=== PATIENT | female | born 1945 | race Caucasian/White ===

== ENCOUNTER 2017-10-22 03:10 | Inpatient (IN) | payer OTHER, MEDICARE ==
[~2017-10-22] VITALS: Ht 157.5 cm; Wt 77.1 kg
[~2017-10-22 03:10] MED LIST: ASPIRIN EC81 M1 PO; CALTRATE 600 +1 EACH PO; FERROUS SULFAT325 M3 PO; GLUCOSAMINE CH1 EAC3; LOSARTAN POTASS25 M1 PO; MULTIPLE VITAM1 EACH; TOPROL XL50 M1
--- NOTE | 2017-10-22 09:32 | Operative Report ---
Operative/Inv Procedure Report Surgery Date: 10/22/17 Name of Procedure: Right total knee arthroplasty Pre-Operative Diagnosis: Right knee primary osteoarthritis, valgus deformity Post-Operative Diagnosis: Same Estimated Blood Loss: less than 50ml Surgeon/Easter Bunny: Pelon PAEZ,Vasiliy Rosas Anesthesia: block Implants: Striker triathlon total knee system-size 4 femur, size 3 tibia, 11 mm cruciate retaining polyethylene, 27 patella Drains: None Specimens: Femoral, tibial, patellar bone, meniscal tissues Microbiology: Urine Tourniquet: 48 minutes Complications: None Condition: Stable Operative Indication: Patient is a 72-year-old woman with a long history of gradually worsening right knee symptoms and progressive valgus deformity. She had mechanical symptoms and increasing pain. Due to these ongoing symptoms and minimal long-term improvement with conservative measures, she wished to proceed with total knee arthroplasty. Risks, benefits and expectations of the surgical procedure were discussed which included but were not limited to persistent knee pain, need for subsequent surgery, infection, DVT, injury to blood vessel or nerve, anesthesia risks. Operative/Procedure Note Note: Patient was brought to the operating room and transferred to the operating table. Once under appropriate anesthesia the right lower extremity was prepped and draped in standard fashion. Preoperative IV antibiotic's were given prophylactically. Leg was elevated exsanguinated and tourniquet was inflated. A anterior incision was made for anticipated medial parapatellar approach to the knee. Incision was taken down sharply to the underlying retinaculum. A medial retinacular approach was used with a minimal extension into the quadriceps tendon. The patient had eburnated bone along the lateral compartment and patellofemoral compartment. Moderate degenerative changes of the medial compartment. Osteophytes were excised. Remnants of the degenerative medial and lateral meniscal tissues were excised. Minimal dissection around the medial tibia was used since patient had a valgus deformity. The drill was used to to enter the intramedullary canal the femur for the intramedullary guide to the distal femoral cut. 5 cut was chosen. The cut was made. I then sized the femur to a size 4. Size 4 cuts were made while protecting the soft tissues. Retractors were used throughout the case to protect soft tissues. I was satisfied the preparation of the femur for now. The external tibial alignment guide was used. The cutting block was pinned in position for a neutral cut from medial to lateral and reproducing patient's posterior slow-paced on intraoperative findings and preoperative templating. Again soft tissues were protected posteriorly medially and laterally. The PCL was recessed slightly. Cut was made I then measured the tibia to a size 3. Trial reduction was size 3 tibia 11 mm insert and the 4 femur was used. I was satisfied with the correction of the valgus deformity. I was satisfied with the soft tissue balancing. I then used 2 towel clamps to stabilize the patella. The patella was measured and the appropriate thickness was removed and then restored with a size 27 patella and 3 lug holes were drilled and the knee was taken through range of motion. Excellent patellar femoral tracking despite patient's preoperative valgus deformity. No need for lateral release. I then removed all trial components. Preparation of the tibia was finished with the appropriate tibial punch at the appropriate rotation which was marked prior to removing the trial components. The 2 lug holes of the femur also drilled prior to removal of the trial components. I then removed all instrumentation the knee and copious irrigation followed. I used the anterior chamfer bone to plug the distal femoral intramedullary hole to minimize postoperative hemarthrosis and swelling. Once the cement was ready it was applied to the dry clean bony surfaces of the tibia. The size 3 tibia was impacted in place with the correct rotation based on my torres from the trial. Excess cement was removed with curettes. Cement was applied to the dry clean bony surfaces of the distal femur. The size 4 femur was impacted in place and excess cement was removed with curettes. The trial polyethylene was placed and the knee was taken out to full extension. Cement was applied to the dry clean bony surfaces of the patella. The size 27 patella was impacted in place and excess cement was removed with a knife. During the cement hardening process I did appear articular pericapsular injection of a cocktail which included ropivacaine with epinephrine saline and Toradol for postoperative pain and inflammation management. Once cement was hardening took the knee through range of motion I removed all small pieces of excess cement. I was satisfied with the stability with the 11 mm insert. Full extension. No mid flexion instability. Full flexion to gravity. No need for lateral patellar release based on the patellofemoral tracking. Copious irrigation the tibial tray followed. I made sure there was no remaining soft tissue, bone fragments or cement fragments within the tibial tray and then I impacted the definitive size 11 mm cruciate retaining polyethylene into place. The locking mechanism was confirmed. After copious irrigation the tourniquet was deflated at 48 minutes. Hemostasis was obtained. No need for a drain. I then closed the retinaculum with interrupted #1 Vicryl suture. Subcutaneous tissues closed in 2 layers with 2-0 Vicryl and skin was closed with a 3-0 Vicryl suture with the knee in flexion. Appropriate just his were applied and patient was awakened and taken the recovery room in good condition. No intraoperative complications. Blood loss was 50 mL or less Discharge Disposition: PACU
--- NOTE | 2017-10-22 10:51 | Patient Discharge Instructions ---
Discharge Instructions General Discharge Information You were seen/treated for: Right knee pain related to osteoarthritis You had these procedures: Right total knee replacement Watch for these problems: Increasing pain despite the use of pain medication Increasing redness, warmth or swelling Drainage of any type from incision Inability to bear weight on operative leg Persistent nausea and vomiting Fever greater than 101.5 degrees Other wound care: Please keep wound clean and dry. No ointments or lotions of any type on or near incision. Your dressing will be changed by your nurse on the second day after your surgery. Daily dry dressing changes are recommended each day thereafter. You may shower 48hr after surgery. Do not soak your wound- no tub baths or swimming. Diet Continue normal diet: Yes Activity Activity Limited to: Weight bear as tolerated Additional ACTIVITY Info: Use assistive devices as needed Acute Coronary Syndrome Inclusion Criteria At DC or during hospital stay patient has or had the following: ACS DIAGNOSIS No Discharge Core Measures Meds if any: Prescribed or Continued at Discharge Meds if any: NOT Prescribed or Continued at Discharge Congestive Heart Failure Inclusion Criteria At DC or during hospital stay patient has or had the following: CHF DIAGNOSIS No Discharge Core Measures Meds if any: Prescribed or Continued at Discharge Meds if any: NOT Prescribed or Continued at Discharge Cerebrovascular accident Inclusion Criteria At DC or during hospital stay patient has or had the following: CVA/TIA Diagnosis No Discharge Core Measures Meds if any: Prescribed or Continued at Discharge Meds if any: NOT Prescribed or Continued at Discharge Venous thromboembolism Inclusion Criteria VTE Diagnosis No VTE Type NONE VTE Confirmed by (Test) NONE Discharge Core Measures - Per Current guidelines, there needs to be overlap - treatment for the first 5 days of Warfarin therapy. - If discharged on Warfarin prior to 5 days of - overlap therapy, the patient will need to be - assessed for post discharge needs including - *Post discharge parental anticoagulation - *Warfarin and/or parental anticoagulation education - *Follow up date to check INR post discharge At least 5 days overlap therapy as Inpatient No Meds if any: Prescribed or Continued at Discharge Note: Overlap Therapy is Warfarin and Anticoagulant Meds if any: NOT Prescribed or Continued at Discharge
--- NOTE | 2017-10-22 10:54 | Surg Short-stay <48hrs Dis Sum ---
Visit Information Visit Dates Admission Date: 10/22/17 Discharge Date: 10/24/17 Surgical Short Stay DC Summary Admission Diagnosis: Right knee pain related to osteoarthritis Final Diagnosis: Same, status post right total knee replacement Procedure(s): Right total knee replacement Summary/Significant Findings: Patient was admitted to the hospital for an elective total joint replacement. Procedure was tolerated well and patient was transferred to a general surgical floor. Diet was advanced and tolerated. Physical therapy performed evaluation and treatment. At time of hospital discharge, vital signs were stable, neurovascular status was intact, and pain was controlled with the use of oral pain medications. Condition at Discharge: Stable Discharge Disposition: home health services Discharge instructions provided to patient/family: Yes Post discharge follow-up plan: Call to be seen in the office in 2 weeks Copies to: Ralph Bird MD
[2017-10-22 11:56] VITALS: BP 118/62
[2017-10-22 13:15] VITALS: BP 108/52
--- NOTE | 2017-10-22 14:01 | PN- Orthopedic ---
Subjective Subjective: POC some nausea, no vomiting. just ate some [place] ice and now feeling better. no oob, "too sick" to work with pt. no cp/sob. no pain. le no longer numb Objective Vital Signs and I&Os Vital Signs Date Time Temp Pulse Resp B/P B/P Pulse O2 O2 Flow FiO2 Mean Ox Delivery Rate 10/22 1156 94 Nasal 2.0L Cannula 10/22 1156 98.9 63 18 118/62 94 Nasal 2.0L Cannula Intake & Output 10/22 1600 10/22 0800 10/22 0000 10/21 1600 10/21 0800 10/21 0000 Intake Total Output Total Balance Patient 170 lb Weight Weight Reported by Patient Measurement Method Physical Exam: gen- nad card- s1s2 rrr pulm- ctab abd- soft nt ext- rle dressed in karla, cdi. gross sensation intact, gross dorsi/plantarflexion intact. palp pedal pulses bl. calves soft nt bl, alps on. Assessment/Plan Assessment/Plan A- POD0 sp R TKR, PMHx htn, with postop nausea, otherwise stable. P- prn pain meds prn antiemetics i&os reg diet as tolerated anticoag: eliquis bid jenna wyatt in am am labs home meds oob, pt, wbat will dw attending Problem List: 1. Primary osteoarthritis of right knee Core Measures Venous Thromboembolism VTE Risk Factors Surgery No Mechanical VTE Prophylaxis d/t N/A MechProphylax Ordered No VTE Pharm Prophylaxis d/t NA PharmProphylax ordered
[2017-10-22 17:02] VITALS: BP 106/60
[2017-10-22 19:45] VITALS: BP 102/60
[2017-10-22 23:28] VITALS: BP 100/48
[2017-10-23 03:32] VITALS: BP 98/56
[2017-10-23 07:37] VITALS: BP 118/60
--- NOTE | 2017-10-23 07:37 | PN- Orthopedic ---
See Addendum Subjective Subjective: PT IN BED, HAS NO PAIN. hAD NAUSEA YESTEDAY BUT HAS SINCE RESOLVED AND IS AWAITING BREAKFAST NOW. NOT OOB YET, PLANS TO WORK WITH PT THIS MORNING. MARINELLI WAS REMOVED THIS MORNING, DUE TO VOID DENIES FEVER, CP/SOB. DENIES PARESTHESIAS Objective Vital Signs and I&Os Vital Signs Date Time Temp Pulse Resp B/P B/P Pulse O2 O2 Flow FiO2 Mean Ox Delivery Rate 10/23 0332 97.4 59 18 98/56 97 10/23 0000 96 Nasal 2.0L Cannula 10/22 2328 97.8 61 18 100/48 99 10/22 1945 97.5 55 18 102/60 96 Nasal 2.0L Cannula 10/22 1702 98.7 57 16 106/60 97 10/22 1315 98.0 76 16 108/52 96 Nasal 2.0L Cannula 10/22 1156 94 Nasal 2.0L Cannula 10/22 1156 98.9 63 18 118/62 94 Nasal 2.0L Cannula Intake & Output 10/23 0800 10/23 0000 10/22 1600 10/22 0800 10/22 0000 10/21 1600 Intake Total 930 705 575 Output Total 400 150 Balance 530 705 425 Intake, IV 450 225 225 Intake, Oral 480 480 350 Number 0 0 Bowel Movements Output, Urine 400 150 Patient 170 lb Weight Weight Reported by Patient Measurement Method Physical Exam: GEN- NAD RESP- CLEAR CARDAIC-RRR ABD- ND SOFT, NT EXT- RIGHT LEG WRAPPED IN JUAN PABLO, CLEAN AND DRY. DISTAL SENSORY AND MOTOR FUNCTION INTACT. 2+ DP PULSE Current Medications: Current Medications Sig/Ede Start time Last Medication Dose Route Stop Time Status Admin Acetaminophen 650 MG ONE 10/22 DC PO 10/22 2358 Apixaban 2.5 MG BID 10/23 899 AC PO Celecoxib 400 MG DAILY 10/23 899 AC PO Celecoxib 400 MG ONE 10/22 DC PO 10/22 2358 Dexamethasone 10 MG ONE 10/22 DC IV 10/22 2358 Dextrose/Lactated 1,000 ML Q13H 10/22 1130 AC 10/22 Ringer's IV 223 Diphenhydramine HCl 25 MG SEE ADMIN CRITERIA.. 10/22 170 AC IV Docusate Sodium 100 MG BID 10/22 0945 AC 10/22 PO 2056 Gabapentin 300 MG ONE 05/21 0000 DC PO 10/22 235 Losartan Potassium 25 MG DAILY 10/23 09 AC PO Metoclopramide HCl 10 MG Q6P PRN 10/22 1700 AC 10/22 IV 1737 Metoprolol Succinate 50 MG DAILY 10/23 0900 AC PO Morphine Sulfate 2 MG Q3P PRN 10/22 1130 AC IV Morphine Sulfate 4 MG Q3P PRN 10/22 1130 AC IV Naloxone HCl 0.4 MG SEE ADMIN CRITERIA 10/22 1700 AC IV Ondansetron HCl 4 MG .STK-MED ONE 10/22 1747 DC IV 10/22 1748 Ondansetron HCl 4 MG Q6P PRN 10/22 1645 AC IV Oxycodone HCl 10 MG ONE 10/22 0000 DC PO 10/22 2359 Oxycodone/ 1 TAB Q4P PRN 10/22 1130 AC 10/23 Acetaminophen PO 0549 Oxycodone/ 2 TAB Q4P PRN 10/22 1130 AC Acetaminophen PO Polyethylene Glycol 17 GM DAILY 10/22 0945 AC PO Promethazine HCl 12.5 MG Q6P PRN 10/22 1130 AC IV 10/29 0944 Scopolamine HBr 1 PAT ONE 10/22 0000 DC TOP 10/22 2359 Senna/Docusate Sodium 2 TAB AT BEDTIME NEED.. 10/22 1130 AC PO Tranexamic Acid 1,000 MG .STK-MED ONE 10/22 0941 DC IV 10/22 0942 Tranexamic Acid 1,000 MG .STK-MED ONE 10/22 0754 DC IV 10/22 0755 Vancomycin HCl 1,250 MG 1900 10/22 1900 DC 10/22 Sodium Chloride 250 ML IV 10/22 1959 1837 Vancomycin HCl 1,250 MG ONCE 10/22 0000 DC Sodium Chloride 250 ML IV 10/22 2359 Assessment/Plan Assessment/Plan A- POD1 sp R TKR, PMHx htn, stable. P- prn pain meds i&os reg diet as tolerated anticoag: eliquis bid due to void FU am labs home meds oob, pt this morning-wbat will dw attending Core Measures Venous Thromboembolism VTE Risk Factors Surgery No Mechanical VTE Prophylaxis d/t N/A MechProphylax Ordered No VTE Pharm Prophylaxis d/t NA PharmProphylax ordered
[2017-10-23 08:41] LABS: ABSOLUTE BASOPHIL COUNT 0 /CUMM (0.0-0.2); ABSOLUTE EOSINOPHIL COUNT 0 /CUMM (0.0-0.7); ABSOLUTE GRANULOCYTE CT 13.1 /CUMM (1.4-6.5); ABSOLUTE LYMPH COUNT 0.7 /CUMM (1.2-3.4); ABSOLUTE MONOCYTE COUNT 1.2 /CUMM (0.10-0.60); BASOPHIL % 0 % (0.0-2.0); EOSINOPHIL % 0 % (0-5); HEMATOCRIT 37.3 % (37-47); MEAN CORPUSCULAR HGB 30.4 PG (27.0-31.0); MEAN CORPUSCULAR HGB CONC 33.8 G/DL (33.0-37.0); MEAN PLATELET VOLUME 8.7 FL (7.4-10.4); PLATELET COUNT 216 /CUMM (130-400); RBC DISTRIBUTION WIDTH 13.8 % (11.5-14.5); RED BLOOD CELL CT 4.15 /CUMM (4.20-5.40); WHITE BLOOD CELL COUNT 15.1 /CUMM (4.8-10.8)
[2017-10-23 09:06] LABS: GRANULOCYTE % 86.9 % (42.2-75.2)
[2017-10-23 14:22] VITALS: BP 110/60
[2017-10-23 21:02] VITALS: BP 120/62
[2017-10-24 06:28] VITALS: BP 126/70
--- NOTE | 2017-10-24 07:53 | PN- Orthopedic ---
Subjective Subjective: POD#2 S/P RIGHT TKA NO MAJOR COMPLAINTS NOW NO MAJOR ISSUES OVERNIGHT DENIES CP, SOB, NO N+V WITH DIET DOING WELL WITH PT URINE CX: >100K GM NEG RODS FROM PREOP COLLECTION CURRENTLY DENIES URGENCY, FREQUENCY OR BURNING WITH URINATION Objective Vital Signs and I&Os Vital Signs Date Time Temp Pulse Resp B/P B/P Pulse O2 O2 Flow FiO2 Mean Ox Delivery Rate 10/24 0528 98.0 66 18 126/70 96 Room Air 10/23 2102 98.3 60 18 120/62 96 Room Air 10/23 1422 97.9 52 18 110/60 98 Room Air 10/23 1103 Room Air Room Air 10/23 0940 70 118/64 10/23 0940 70 118/64 Intake & Output 10/24 0800 10/24 0000 10/23 1600 10/23 0800 10/23 0000 10/22 1600 Intake Total 120 1000 720 930 705 575 Output Total 400 600 400 400 150 Balance -280 400 320 530 705 425 Intake, IV 450 225 225 Intake, Oral 120 1000 720 480 480 350 Number 0 0 Bowel Movements Output, Urine 400 600 400 400 150 Patient 170 lb Weight Weight Reported by Patient Measurement Method Physical Exam: CV: RRR LUNGS: CLEAR ABD: SOFT, +BS EXT: DRSG CHANGED, WOUND C/D/I NO CALF TENDERNESS BILAT DISTAL CMS INTACT Assessment/Plan Assessment/Plan ORTHO STABLE PLAN CONT OOB ADVANCE DIET ELIQUIS FOR DVT PROPHYLAXIS WILL DISCUSS URINE CX WT ATTNEDING Core Measures Venous Thromboembolism VTE Risk Factors Surgery No Mechanical VTE Prophylaxis d/t N/A MechProphylax Ordered No VTE Pharm Prophylaxis d/t NA PharmProphylax ordered
[2017-10-24] MEDS ORDERED: MIRALAX119 GM PO (07:59)
[2017-10-24] MEDS ORDERED: PERCOCET 5-3251 EACH PO (07:59)
[2017-10-24] MEDS ORDERED: CELEBREX200 M1 PO (07:59)
[2017-10-24] MEDS ORDERED: DOCUSATE SODIU100 M3 PO (07:59)
[2017-10-24] MEDS ORDERED: ELIQUIS2.5 M1 PO (07:59)
[2017-10-24 08:12] VITALS: BP 126/70
--- NOTE | 2017-10-24 11:48 | RADIOLOGY REPORT ---
EXAMINATION: XR KNEE, RIGHT CLINICAL INFORMATION: Status post right total knee arthroplasty. COMPARISON: None. TECHNIQUE: AP and lateral views of the right knee. FINDINGS: The right total knee arthroplasty appears well seated in near-anatomic alignment. There is air in the joint and soft tissues. There is a large joint effusion. IMPRESSION: Intact-appearing right total knee arthroplasty. Large joint effusion. Otherwise, expected postoperative changes.
== END 2017-10-24 13:23 | disposition home health service (06) | DRG 470 ==
LOC: SDA 03:10 → ENRESERV 10:17 → ENTRNSPT 10:47 → EDTRNSPT 11:04 → EDTRNSPTSTS 11:04 → 2NB 11:13 → CMPTRNSPT 11:23 → ENPENDDIS 10-24 10:10 → ENTRNSPT 10-24 12:57 → EDTRNSPT 10-24 13:06 → EDTRNSPTSTS 10-24 13:06 → CMPTRNSPT 10-24 13:16 → 2NB 10-24 13:23
PROVIDERS: Physician Assistant Surgical
PROC: 3E0T3BZ Introduction of Anesthetic Agent into Peripheral Nerves and Plexi, Percutaneous Approach (ICD-10-PCS; principal; 2017-10-22)
PROC: 0SRC0J9 Replacement of Right Knee Joint with Synthetic Substitute, Cemented, Open Approach (ICD-10-PCS; principal; 2017-10-22)
DX: M17.11 Unilateral primary osteoarthritis, right knee (principal); I34.1 Nonrheumatic mitral (valve) prolapse; E78.5 Hyperlipidemia, unspecified; I10 Essential (primary) hypertension
CPT/HCPCS: 2NBSP; 36415; 36592; 73560-RT; 82436; 87086; 97110-GO; 97116-GO; 97161-GP; 97530-GO; C1713; C9290; J0171; J0690; J1100; J1885; J2405; J2765; J2795; J3370; J7040